=== PATIENT | female | born 1990 | race Two or more races ===

== ENCOUNTER 2024-04-12 17:34 | Emergency (ER) | payer SELFPAY ==
--- NOTE | ~2024-04-12 | CT_ITS ---
CT abdomen pelvis w con Ordering provider: Elier oPwers MD History: 33 years Female with . right lower quadrant pain . Comparison: None. Technique: CT abdomen and pelvis with IV and without oral contrast. Automated exposure control and it erative reconstruction technique were employed. The dose-length product was 203.68 mGy-cm. 100 mL Omn ipaque 350 was given Findings: VISUALIZED LOWER CHEST: Normal. UPPER ABDOMINAL ORGANS: Liver: Normal. Gallbladder: Status post cholecystectomy. Spleen: Normal. Stomach/duodenum: Normal. Pancreas: Normal. Adrenals: Normal. Kidneys: Normal. PELVIC ORGANS: The bladder is normal. BOWEL AND MESENTERY: Colon: No evidence of diverticulitis.. Fecal material is loaded in the colon. 8 mm Fluid containing structure is seen anterior to the bladder and medial to the cecum which may be the appendix or Small bowel. Clinical correlation for tenderness in this area is advised. Small Bowel: Normal. No obstruction. Peritoneum/mesentery: No free air. Trace of free fluid in the right side of the pelvis. No mesenteric lymphadenopathy. RETROPERITONEUM: Normal aorta. No retroperitoneal lymphadenopathy. MUSCULOSKELETAL: Superficial soft tissues: The superficial soft tissues are normal. Bones: Normal spine. Old fracture of the right transverse process of L3. 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 IMPRESSION: 1. No evidence of diverticulitis or intestinal obstruction. 2. Constipation 3. Fluid containing structure seen anterior to the bladder which may be the appendix or small bowel. Evaluation for tenderness in this area advised. Reviewed, dictated and finalized at location A. IMPRESSION: 1. No evidence of diverticulitis or intestinal obstruction. 2. Constipation 3. Fluid containing structure seen anterior to the bladder which may be the ap pendix or small bowel. Evaluation for tenderness in this area advised.
[2024-04-12 17:38] VITALS: BP 128/64; PULSE 73; RESP 15; TEMP 37.1; O2SAT 100
[2024-04-12 19:42] VITALS: BP 137/82; PULSE 68; RESP 16; TEMP 36.6; O2SAT 100
[2024-04-12 20:04] LABS: BEDSIDEPREGUCG Negative (Negative)
[2024-04-12 20:06] LABS: Basophils Percent Auto 0.6 % (0.2-1.2); Eosinophils Absolute Auto 0.1 K/mm3 (0-0.3); Eosinophils Percent Auto 1.6 % (0-4.4); Hematocrit 37.3 % (37.0-47.0); Hemoglobin 12.5 g/dL (12.0-15.0); Immature Granulocyte Absolute 0.01 K/mm3 (0.00-0.031); Immature Granulocyte Percent A 0.1 % (0-0.5); Lymphocytes Absolute Auto 3.23 K/mm3 (0.9-3.2); Mean Corpuscular HGB Conc 33.5 g/dl (32-36); Mean Corpuscular Hemoglobin 29.2 pg (26-34); Mean Corpuscular Volume 87.1 fl (80-100); Mean Platelet Volume 10.9 fl (7.4-10.4); Monocytes Absolute Auto 0.4 K/mm3 (0.1-0.6); Monocytes Percent Auto 6.4 % (2.6-8.5); Neutrophils Absolute Auto 2.9 K/mm3 (1.3-6.7); Neutrophils Percent Auto 43.3 % (45.5-73.1); Platelet Count Result 201 k/mm3 (150-375); Red Blood Count 4.28 M/mm3 (4.2-5.4); White Blood Count 6.7 K/mm3 (4.5-10.0)
[2024-04-12] MEDS: SODIUM CHLORIDE 0.9% IV 1,000 ML 999 ML IV CONT (20:10)
[2024-04-12] MEDS: ONDANSETRON INJ 4 MG/2 ML VIAL IV PUSH (20:10)
[2024-04-12 20:12] LABS: Add Urine Microscopic? YES; Appearance Urine Clear (Clear); Bacteria Urine None Seen /hpf; Bilirubin Urine Negative (Negative); Blood Urine Negative (Negative); Color Urine Yellow (Yellow); Glucose Urine UA Negative (Negative); Ketones Urine Negative (Negative); Leukocyte Esterase Ur Trace LEU/UL (Negative); Nitrate Urine Negative (Negative); Non Pathogenic Casts 0-2; Protein Urine Negative (Negative); RBC Urine 0-2 /hpf (0-2); Specific Grav Ur 1.007 (1.001-1.035); Squamous Epithelial Cell Urine None Seen /hpf (Few); Urobilinogen Urine 0.2 mg/dL (<2.0); WBC Urine 0-5 /hpf (0-3); pH Urine 6.5 (5.0-9.0)
[2024-04-12 20:16] LABS: Alanine Aminotransferase 18 U/L (6-35); Alkaline Phosphatase 94 U/L (38-126); Anion Gap 12 mmol/L (4-12); Aspartate Amino Transferase 30 U/L (14-36); Bilirubin,Total 0.6 mg/dL (0.2-1.3); Blood Urea Nitrogen 12 mg/dL (7-17); Calcium 9.3 mg/dL (8.4-10.2); Carbon Dioxide 22 mmol/L (22-30); Chloride 105 mmol/L (98-107); Estimated CRCL calculation 72 ml/min; Estimated Glomerular Filt Rate > 60; Glucose 88 mg/dL (65-110); Lipase 118 U/L (23-300); Potassium 3.6 mmol/L (3.4-5.0); Sodium 139 mmol/L (137-145)
--- NOTE | 2024-04-12 21:02 | ED.GENADULT ---
HPI - General Adult General Chief complaint: Abdominal Pain Stated complaint: abd pain Time Seen by Provider: 04/12/24 19:29 History of Present Illness HPI narrative: patient 33-year-old female who presents emergency department with chief complaint of abdominal pain patient reports been having pain for several days reports that it is worse in the right lower quadrant patient reports pain does not radiate reports no nausea vomiting diarrhea Related Data Allergies Allergy/AdvReac Type Severity Reaction Status Date / Time No Known Allergies Allergy Verified 04/12/24 17:41 Review of Systems Review of Systems: A 10 system review of systems was completed on the patient and is negative except for what is stated in the HPI. Nursing and ancillary documentation was reviewed. Exam Narrative: GENERAL: Well-appearing, well-nourished, and in no acute distress. HEAD: Normocephalic, atraumatic. EYES: PERRLA and EOMI. ENT: Nares clear, no rhinorrhea or epistaxis. Mucous membranes moist. NECK: Supple. CHEST: Clear to auscultation. No respiratory distress. HEART: Regular rate and rhythm. No murmur heard. Normal peripheral pulses. ABDOMEN: Soft, tenderness to palpation the right lower quadrant, nondistended, normal active bowel sounds. EXTREMITIES: Normal range of motion. No edema. SKIN: Warm, dry, no rash. NEURO: No focal deficits. Alert and oriented x3. PSYCH: Normal mood and affect. Course Vital Signs Vital signs: Vital Signs Temperature 37.1 C 04/12/24 17:38 Pulse Rate 73 04/12/24 17:38 Respiratory Rate 15 04/12/24 17:38 Blood Pressure 128/64 04/12/24 17:38 Pulse Oximetry 100 04/12/24 17:38 Oxygen Delivery Room Air 04/12/24 17:38 Temperature 36.6 C 04/12/24 19:42 Pulse Rate 68 04/12/24 19:42 Respiratory Rate 16 04/12/24 19:42 Blood Pressure 137/82 04/12/24 19:42 Pulse Oximetry 100 04/12/24 19:42 Oxygen Delivery Room Air 04/12/24 17:38 Medical Decision Making [facility] Narrative Medical decision making narrative: differential diagnosis includes UTI, intra-abdominal infection, diverticulitis, colitis, constipation, laboratory studies were obtained showed normal CBC normal CMP urinalysis showed no evidence UTI CT scan of the abdomen pelvis showed constipation there is no secondary evidence of appendicitis. The patient will be started on MiraLax and will be discharged home Vital Signs Vital Signs: Vital Signs Temperature 37.1 C 04/12/24 17:38 Pulse Rate 73 04/12/24 17:38 Respiratory Rate 15 04/12/24 17:38 Blood Pressure 128/64 04/12/24 17:38 Pulse Oximetry 100 04/12/24 17:38 Oxygen Delivery Room Air 04/12/24 17:38 Temperature 36.6 C 04/12/24 19:42 Pulse Rate 68 04/12/24 19:42 Respiratory Rate 16 04/12/24 19:42 Blood Pressure 137/82 04/12/24 19:42 Pulse Oximetry 100 04/12/24 19:42 Oxygen Delivery Room Air 04/12/24 17:38 Lab Data 04/12/24 19:59 04/12/24 19:59 Labs: Lab Results 04/12/24 04/12/24 Range/Units 19:59 20:02 WBC 6.7 (4.5-10.0) K/mm3 RBC 4.28 (4.2-5.4) M/mm3 Hgb 12.5 (12.0-15.0) g/dL Hct 37.3 (37.0-47.0) % MCV 87.1 (80-100) fl MCH 29.2 (26-34) pg MCHC 33.5 (32-36) g/dl RDW 13.0 (11.5-14.5) % Plt Count 201 (150-375) k/mm3 MPV 10.9 H (7.4-10.4) fl Immature Gran % (Auto) 0.1 (0-0.5) % Neut % (Auto) 43.3 L (45.5-73.1) % Lymph % (Auto) 48.0 H (18.3-44.2) % [place] % (Auto) 6.4 (2.6-8.5) % Eos % (Auto) 1.6 (0-4.4) % Baso % (Auto) 0.6 (0.2-1.2) % Lymph # (Auto) 3.23 H (0.9-3.2) K/mm3 [place] # (Auto) 0.4 (0.1-0.6) K/mm3 Eos # (Auto) 0.1 (0-0.3) K/mm3 Baso # (Auto) 0.0 (0.0-0.1) K/mm3 Abs Immat Gran (auto) 0.01 (0.00-0.031) K/mm3 Absolute Neuts (auto) 2.9 (1.3-6.7) K/mm3 Absolute Nucleated RBC 0.000 (0.0-0.012) K/mm3 Nucleated RBC % 0.0 (0.0-0.2) % Sodium 139 (137-145)
[2024-04-12 21:30] VITALS: BP 107/60; PULSE 69; RESP 17; TEMP 36.4; O2SAT 100
== END 2024-04-12 22:34 | disposition home or self-care (01) ==
PROVIDERS: Emergency Provider Emergency Medicine
DX: K59.00 Constipation, unspecified (principal)
CPT/HCPCS: 36415; 74177; 80053; 81001; 81025; 83690; 85025; 96361; 96374; 99284; J2405; J7030; Q9967

== ENCOUNTER 2024-10-18 18:42 | Emergency (ER) | payer SELFPAY ==
--- NOTE | ~2024-10-18 | CT_ITS ---
CT of the Abdomen and Pelvis: Indication: Abdominal pain Technique: 2.5 mm axial scans were obtained through the abdomen and pelvis following intravenous adm inistration of 100 cc of Omnipaque 350. Dose reduction technique was used on this scan by utilizing a utomated exposure control and iterative reconstruction technique. The dose-length product (DLP) was 1 91.17 mGy-cm. COMPARISON: 04/12/2024 Findings: Scans through the lung bases are unremarkable. The liver, spleen, pancreas, adrenals and kidneys are within normal limits. Cholecystectomy clips are present. No evidence of aortic aneurysm. No lymphadenopathy. No bowel obstruction or bowel wall thickening. There is no evidence to suggest acute appendicitis. Images through the pelvis were performed. Urinary bladder unremarkable. No pelvic mass seen. No ascit es. Impression: No significant abnormalities seen. Reviewed, dictated and finalized at [facility]. Impression: No significant abnormalities seen.
[2024-10-18 19:26] VITALS: BP 103/90; PULSE 69; RESP 17; TEMP 36.3; O2SAT 100
[2024-10-18 23:17] VITALS: BP 134/66; PULSE 61; RESP 15; O2SAT 100
[2024-10-18 23:23] LABS: BEDSIDEPREGUCG Negative (Negative)
[2024-10-18 23:27] LABS: Basophils Percent Auto 0.4 % (0.2-1.2); Eosinophils Percent Auto 0.4 % (0-4.4); Hematocrit 37.9 % (37.0-47.0); Hemoglobin 12.2 g/dL (12.0-15.0); Immature Granulocyte Absolute 0.01 K/mm3 (0.00-0.031); Immature Granulocyte Percent A 0.1 % (0-0.5); Lymphocytes Absolute Auto 3.28 K/mm3 (0.9-3.2); Lymphocytes Percent Auto 44.9 % (18.3-44.2); Mean Corpuscular HGB Conc 32.2 g/dl (32-36); Mean Corpuscular Volume 86.9 fl (80-100); Mean Platelet Volume 10.9 fl (7.4-10.4); Monocytes Absolute Auto 0.4 K/mm3 (0.1-0.6); Monocytes Percent Auto 5.9 % (2.6-8.5); Neutrophils Absolute Auto 3.5 K/mm3 (1.3-6.7); Neutrophils Percent Auto 48.3 % (45.5-73.1); Platelet Count Result 172 k/mm3 (150-375); Red Blood Count 4.36 M/mm3 (4.2-5.4); Red Cell Distribution Width 12.8 % (11.5-14.5); White Blood Count 7.3 K/mm3 (4.5-10.0)
[2024-10-18 23:28] LABS: Add Urine Microscopic? NO; Appearance Urine Clear (Clear); Bilirubin Urine Negative (Negative); Blood Urine Negative (Negative); Color Urine Yellow (Yellow); Glucose Urine UA Negative (Negative); Ketones Urine Negative (Negative); Leukocyte Esterase Ur Negative LEU/UL (Negative); Nitrate Urine Negative (Negative); Protein Urine Negative (Negative); Specific Grav Ur 1.006 (1.001-1.035); Urobilinogen Urine 0.2 mg/dL (<2.0); pH Urine 5.5 (5.0-9.0)
[2024-10-18 23:37] LABS: Alanine Aminotransferase 23 U/L (6-35); Albumin Level 4.8 g/dL (3.5-5.1); Alkaline Phosphatase 93 U/L (38-126); Anion Gap 13 mmol/L (4-12); Aspartate Amino Transferase 23 U/L (14-36); Bilirubin,Total 0.6 mg/dL (0.2-1.3); Blood Urea Nitrogen 9 mg/dL (7-17); Calcium 9.4 mg/dL (8.4-10.2); Carbon Dioxide 22 mmol/L (22-30); Chloride 104 mmol/L (98-107); Estimated CRCL calculation 70 ml/min; Estimated Glomerular Filt Rate > 60; Glucose 96 mg/dL (65-110); Lipase 89 U/L (23-300); Potassium 3.4 mmol/L (3.4-5.0); Sodium 139 mmol/L (137-145)
[2024-10-19 00:04] LABS: Influenza A QL RT-PCR Negative (Negative); Influenza B QL RT-PCR Negative (Negative); RSV RNA, RT-PCR Negative (Negative); SARS-CoV-2 RNA PCR Negative (Negative)
[2024-10-19] MEDS: MORPHINE SULFATE (*CRX) 2 MG/ML INJ IV PUSH (00:35)
[2024-10-19] MEDS: SODIUM CHLORIDE 0.9% IV 1,000 ML 999 ML IV CONT (00:35)
[2024-10-19 00:48] VITALS: BP 124/80; PULSE 58; RESP 15; O2SAT 100
--- NOTE | 2024-10-19 00:57 | ED.ABDPAIN ---
HPI - Abdominal Pain General Chief Complaint: Abdominal Pain Stated Complaint: Abdominal pain, diarrhea, fever Time Seen by Provider: 10/18/24 23:14 History of Present Illness HPI narrative: Patient is a 34-year-old female who presents to the ER with abdominal pain that started approximately 4-5 days ago. She reports she has had diarrhea and vomiting. Patient also endorses a slight headache. She endorses a history cholecystectomy, skin infection, 2 pregnancies, heavy vaginal bleeding during her menstrual periods. Patient denies any chest pain, shortness of breath, back pain, vaginal bleeding. She does endorses intermittent low grade fevers. Related Data Allergies Allergy/AdvReac Type Severity Reaction Status Date / Time No Known Allergies Allergy Verified 10/18/24 18:43 Review of Systems Review of Systems: All systems reviewed & are unremarkable except as noted in HPI and below Exam Narrative: GENERAL: Well appearing, well-nourished, non-toxic, in no acute distress. HEAD: Normocephalic, atraumatic. NECK: Supple. No adenopathy, no masses. RESPIRATORY: Airway patent, respirations nonlabored. Clear to auscultation bilaterally, no rales, rhonchi, wheezing. CARDIOVASCULAR: Regular rate and rhythm without murmurs, rubs, or gallops. Peripheral pulses 2+ and equal bilaterally. ABDOMINAL: Soft, tender upon umbilicus and RLQ abdominal pain, nondistended, no hepatosplenomegaly. Normoactive BS. MUSCULOSKELETAL: Moves all extremities. Strength/ROM intact without gross deformities. SKIN: Warm, dry, normal color. No rashes. NEURO: A&O X3. Speech clear. Cranial nerves II-XII intact. No ataxic movements. PSYCHIATRIC: Appropriate mood and affect. Normal interaction. Course Vital Signs Vital signs: Vital Signs Temperature 36.3 C L 10/18/24 19: Pulse Rate 69 10/18/24 19: Respiratory Rate 17 10/18/24 19: Blood Pressure 103/90 10/18/24 19: Pulse Oximetry 100 10/18/24 19:26 Oxygen Delivery Room Air 10/18/24 19: Temperature 36.3 C L 10/18/24 19: Pulse Rate 62 10/19/24 03:46 Respiratory Rate 15 10/19/24 03:46 Blood Pressure 106/52 L 10/19/24 03:46 Pulse Oximetry 100 10/19/24 03:46 Oxygen Delivery Room Air 10/18/24 19:26 MDM - Abdominal Pain MDM Narrative Medical decision making narrative: Patient is a 34-year-old female who presents to the ER with abdominal pain that started approximately 4-5 days ago. She reports she has had diarrhea and vomiting. Patient also endorses a slight headache. She endorses a history cholecystectomy, skin infection, 2 pregnancies, heavy vaginal bleeding during her menstrual periods. Patient denies any chest pain, shortness of breath, back pain, vaginal bleeding, recent fevers. Labs Ordered: CBC, CMP, UA, lipase, COVID/flu/RSV swab, bedside urine Imaging Ordered: CT abdomen pelvis scan Medications Ordered: 1 L normal saline IV bolus, morphine 2 mg IV Results: Pt's CT abdomen pelvis indicates a 1.2cm hemorrhagic left ovarian cyst, mild pelvic free fluid, no bowel obstruction, normal appendix, no other acute findings. Diagnosis: gastroenteritis, ovarian cyst Patient Education/Shared MDM: Results shared with patient. She endorses improvement following medication administration. Patient strongly advised to maintain hydration status upon discharge and follow-up with her PCP as soon as possible. She will be discharged home with a prescription for Zofran and Bentyl. Strict return precautions provided. Patient verbalized understanding and is in agreement with plan. Vital signs stable at time of discharge. All questions answered. Differential Diagnosis Differential diagnosis: Likely abdominal pain, acute appendicitis, constipation, diverticulitis, gastroenteritis and small bowel obstruction Lab Data Attestation: I reviewed the patient's lab results. 10/18/24 23:13 10/18/24 23:13 Labs: Lab Results 10/18/24 10/18/24 10/18/24 Range/Units 23:13 23:18 23:20 WBC 7.3 (4.5-10.0) K/mm3 RBC 4.36 (4.2-5.4) M/mm3 Hgb 12.2 (12.0-15.0) g/dL Hct 37.9 (37.0-47.0) % MCV 86.9 (80-100) fl MCH 28.0 (26-34) pg MCHC 32.2 (32-36) g/dl RDW 12.8 (11.5-14.5) % Plt Count 172 (150-375) k/mm3 MPV 10.9 H (7.4-10.4) fl Immature Gran % (Auto) 0.1 (0-0.5) % Neut % (Auto) 48.3 (45.5-73.1) % Lymph % (Auto) 44.9 H (18.3-44.2) % [place] % (Auto) 5.9 (2.6-8.5) % Eos % (Auto) 0.4 (0-4.4) % Baso % (Auto) 0.4 (0.2-1.2) % Lymph # (Auto) 3.28 H (0.9-3.2) K/mm3 [place] # (Auto) 0.4 (0.1-0.6) K/mm3 Eos # (Auto) 0.0 (0-0.3) K/mm3 Baso # (Auto) 0.0 (0.0-0.1) K/mm3 Abs Immat Gran (auto) 0.01 (0.00-0.031) K/mm3 Absolute Neuts (auto) 3.5 (1.3-6.7) K/mm3 Absolute Nucleated RBC 0.000 (0.0-0.012) K/mm3 Nucleated RBC % 0.0 (0.0-0.2) % Sodium 139 (137-145) mmol/L Potassium 3.4 (3.4-5.0) mmol/L Chloride 104 (98-107) mmol/L Carbon Dioxide 22 (22-30) mmol/L Anion Gap 13 H (4-12) mmol/L BUN 9 (7-17) mg/dL Creatinine 0.70 (0.7-1.0) mg/dL Estim Creat Clear Calc 70 ml/min Estimated GFR > 60 (59 - ) Glucose 96 (65-110) mg/dL Calcium 9.4 (8.4-10.2) mg/dL Total Bilirubin 0.6 (0.2-1.3) mg/dL AST 23 (14-36) U/L ALT 23 (6-35) U/L Alkaline Phosphatase 93 (38-126) U/L Total Protein 8.0 (6.3-8.2) g/dL Albumin 4.8 (3.5-5.1) g/dL Lipase 89 (23-300) U/L Urine Color Yellow (Yellow) Urine Appearance Clear (Clear) Urine pH 5.5 (5.0-9.0) Ur Specific [place] 1.006 (1.001-1.035) Urine Protein Negative (Negative) mg/dL Urine Glucose (UA) Negative (Negative) mg/dL Urine Ketones Negative (Negative) mg/dL Ur Blood (Man) Negative (Negative) Urine Nitrate Negative (Negative) Urine Bilirubin Negative (Negative) Urine Urobilinogen 0.2 (<2.0) mg/dL Leukocyte Esterase Rfl Negative (Negative) YUNG/UL POC Urine HCG, Qual Negative (Negative) Influenza A (RT-PCR) Negative (Negative) Influenza B (RT-PCR) Negative (Negative) RSV (RT-PCR) Negative (Negative) SARS-CoV-2 RNA (RT-PCR) Negative (Negative) Imaging Data My impression: Pt's CT abdomen pelvis indicates a 1.2cm hemorrhagic left ovarian cyst, mild pelvic free fluid, no bowel obstruction, normal appendix, no other acute findings. Discharge Plan Discharge Clinical Impression: Abdominal pain, Gastroenteritis, Hemorrhagic cyst of left ovary Patient Disposition: Home, Self-Care Condition: Stable Instructions: Antibiotic Form, Abdominal Pain (ED) Additional Instructions: Please return to the ER with any worsening symptoms. Follow-up with primary care provider as soon as possible and follow-up with your OBGYN. Take all medications as prescribed, including regularly scheduled medications. Patient Language: Icelandic Prescriptions: New dicyclomine 10 mg capsule 10 mg PO TID Qty: 20 0RF ondansetron 4 mg tablet,disintegrating 4 mg PO Q8H Qty: 15 0RF No Action polyethylene glycol 3350 [Miralax] 17 gram/dose powder 17 g PO DAILY 5 Days Qty: 85 0RF Follow-up/Referrals: PHYSICIAN,[facility] [Primary Care Provider] - Time of Disposition: 04:00
[2024-10-19 03:46] VITALS: BP 106/52; PULSE 62; RESP 15; O2SAT 100
[2024-10-19 04:15] VITALS: BP 112/58; PULSE 64; RESP 17; O2SAT 99
== END 2024-10-19 04:16 | disposition home or self-care (01) ==
PROVIDERS: Emergency Medicine; Emergency Provider Registered Nurse
DX: K52.9 Noninfective gastroenteritis and colitis, unspecified (principal); N83.202 Unspecified ovarian cyst, left side; Z20.822 Contact with and (suspected) exposure to COVID-19
CPT/HCPCS: 36415; 74177; 80053; 81003; 81025; 83690; 85025; 87637; 96361; 96374; 99284; J2270; J7030; Q9967

== ENCOUNTER 2024-11-13 16:20 | Emergency (ER) | payer SELFPAY ==
--- NOTE | ~2024-11-13 | CT_ITS ---
CLINICAL INDICATION: Abdominal pain COMPARISON: 10/19/2024. TECHNIQUE: Multiple contiguous axial images of the abdomen and pelvis were performed following the ad ministration of with 100 mL Omnipaque-350 intravenous contrast The dose-length product (DLP) was 175.26 mGy-cm. Automated exposure control and iterative reconstruction technique were employed. FINDINGS/OBSERVATIONS: Visualized lower thorax: The bilateral lung bases are clear. The heart is of normal size, without pericardial effusion. Small hiatal hernia is present. Liver: The liver demonstrates homogeneous enhancement and is not enlarged. Gallbladder and biliary system: The gallbladder is surgically absent. Pancreas: The pancreas enhances homogeneously without ductal dilatation. Spleen: The spleen enhances homogeneously and is not enlarged. Kidneys: The bilateral kidneys enhance symmetrically without hydronephrosis or renal calculi. Adrenal glands: Unremarkable. Gastrointestinal tract: Fecal stasis within the colon. Appendix: The appendix is not definitively visualized. However, no pericecal inflammatory change is identified suggest the presence of acute appendicitis. 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 Lymph nodes: No pathologically enlarged or morphologically suspicious lymph nodes within the retroperitoneum or at the root of the mesentery. Pelvic structures: The bladder is distended, and otherwise unremarkable. Uterus is anteverted and retroflexed. Involuting cyst within the left ovary which does not meet size criteria for follow-up (measuring only 16 mm) and unchanged from 10/19/2024. Free fluid within the pelvis, likely physiologic. Body wall and musculoskeletal: No significant degenerative disease within the lower thoracic or lumbosacral spine. 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 Referral to [facility] is recommended, with subsequent treatment by interventional radiology. Involuting cyst within the left ovary. Thank you for the opportunity to assist in the care of your patient. For questions or concerns regarding this interpretation, please reach out to me directly at [phone]. Reviewed, dictated and finalized at location A. 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 Referral to [facility] is recommended, with subsequent treatment by interventional rad iology. Involuting cyst within the left ovary. Thank you for the opportunity to assist in the care of your patient. For questions or concerns regarding this interpretation, please reach out to me directly at [phone].
[2024-11-13 16:40] VITALS: BP 128/63; PULSE 66; RESP 16; TEMP 36.5; O2SAT 100
--- NOTE | 2024-11-13 16:45 | ED.ABDPAIN ---
HPI - Abdominal Pain General Chief Complaint: Abdominal Pain <Amber Reyes PA-C - Last Filed: 11/13/24 16:47> Stated Complaint: abd pain, diarrhea <Amber Reyes PA-C - Last Filed: 11/13/24 16:47> Time Seen by Provider: 11/13/24 17:10 <Amber Reyes PA-C - Last Filed: 11/13/24 16:47> Focused HPI: 34 y/o F with a PMHx of cholecystectomy presents to the ED for lower abdominal pain and diarrhea x15 days. Pt endorsing dysuria. No n/v. States she has been having fevers around 102. She has not taken any medications for her symptoms or fever. Denies vaginal discharge or concern for STDs. GENERAL: Well-appearing, well-nourished, and in no acute distress. HEAD: Normocephalic, atraumatic. CHEST: Clear to auscultation. ?No respiratory distress. HEART: Regular rate and rhythm.? NEURO: ?Alert and oriented x3. Patient screened in triage and initial orders placed.? ?Additional care and disposition to be based upon?diagnostic testing and treatment. <Amber Reyes PA-C - Last Filed: 11/13/24 16:47> History of Present Illness HPI narrative: per HPI; agree. Pelvic pain for weeks to months and some diarrhea and cramping worse after eating. Already saw OBGYN without answers. <Ora Scott MD - Last Filed: 11/13/24 19:11> Related Data Allergies/Adverse Reactions: Allergies Allergy/AdvReac Type Severity Reaction Status Date / Time No Known Allergies Allergy Verified 11/13/24 16:21 <Amber Reyes PA-C - Last Filed: 11/13/24 16:47> Exam Narrative: EXAMINATION OF ORGAN SYSTEMS/BODY AREAS: Constitutional: Vital signs per nursing GENERAL:[No acute distress, non-toxic appearing.] HEAD: Normal with no signs of head trauma. EYES: EOMI, conjunctiva normal ENT: Hearing grossly intact LUNGS: Nonlabored breathing. HEART: [Regular rate and rhythm] ABD: [Soft], [nontender to palpation] EXT: Normal range of motion SKIN: [No rashes or lesions.] NEURO: [Alert and oriented x 3. No gross focal sensory or strength deficits.] PSYCH: Normal affect <Ora Scott MD - Last Filed: 11/13/24 19:11> Course Vital Signs Vital signs: Vital Signs Temperature 97.7 F 11/13/24 16:40 Pulse Rate 66 11/13/24 16:40 Respiratory Rate 16 11/13/24 16:40 Blood Pressure 128/63 11/13/24 16:40 Pulse Oximetry 100 11/13/24 16:40 Temperature 97.7 F 11/13/24 16:40 Pulse Rate 66 11/13/24 16:40 Respiratory Rate 16 11/13/24 16:40 Blood Pressure 128/63 11/13/24 16:40 Pulse Oximetry 100 11/13/24 16:40 <Amber Reyes PA-C - Last Filed: 11/13/24 16:47> Vital Signs Temperature 97.7 F 11/13/24 16:40 Pulse Rate 66 11/13/24 16:40 Respiratory Rate 16 11/13/24 16:40 Blood Pressure 128/63 11/13/24 16:40 Pulse Oximetry 100 11/13/24 16:40 Temperature 97.7 F 11/13/24 16:40 Pulse Rate 66 11/13/24 16:40 Respiratory Rate 16 11/13/24 16:40 Blood Pressure 128/63 11/13/24 16:40 Pulse Oximetry 100 11/13/24 16:40 <Ora Scott MD - Last Filed: 11/13/24 19:11> MDM - Abdominal Pain MDM Narrative Medical decision making narrative: 1) Differential diagnosis: diverticulitis, gastroenteritis, endometriosis, etc 2) Comorbidities: n/a 3) External notes reviewed: prior notes 4) History sources independently obtained from: at bedside 5) Discussion of management with: OBGYN 6) Independent interpretation of: 7) Diagnostic tests or therapies considered but not ordered: 8) Social determinants of health: 9) Shared decision makinF p/w diarrhea and pelvic pain x weeks to months; labs wnl, CT A/P obtained showing likely pelvic congestion syndrome. D/w OBGYN for outpt mgmt/f/u. D/w pt plan for f/u. Also referral to GI for her chronic GI sx, also advised trying to cut dairy out of her diet. Return precautions provided. <Ora Scott MD - Last Filed: 11/13/24 19:11> Lab Data Result diagrams: 11/13/24 16:56 11/13/24 16:56 <Amber Reyes PA-C - Last Filed: 11/13/24 16:47> Labs: Lab Results 11/13/24 11/13/24 11/13/24 Range/Units 16:56 17:04 17:10 WBC 5.9 (4.5-10.0) K/mm3 RBC 4.37 (4.2-5.4) M/mm3 Hgb 12.1 (12.0-15.0) g/dL Hct 38.7 (37.0-47.0) % MCV 88.6 (80-100) fl MCH 27.7 (26-34) pg MCHC 31.3 L (32-36) g/dl RDW 12.7 (11.5-14.5) % Plt Count 178 (150-375) k/mm3 MPV 11.0 H (7.4-10.4) fl Immature Gran % (Auto) 0.2 (0-0.5) % Neut % (Auto) 49.3 (45.5-73.1) % Lymph % (Auto) 41.5 (18.3-44.2) % [place] % (Auto) 8.6 H (2.6-8.5) % Eos % (Auto) 0.2 (0-4.4) % Baso % (Auto) 0.2 (0.2-1.2) % Lymph # (Auto) 2.45 (0.9-3.2) K/mm3 [place] # (Auto) 0.5 (0.1-0.6) K/mm3 Eos # (Auto) 0.0 (0-0.3) K/mm3 Baso # (Auto) 0.0 (0.0-0.1) K/mm3 Abs Immat Gran (auto) 0.01 (0.00-0.031) K/mm3 Absolute Neuts (auto) 2.9 (1.3-6.7) K/mm3 Absolute Nucleated RBC 0.000 (0.0-0.012) K/mm3 Nucleated RBC % 0.0 (0.0-0.2) % Sodium 140 (137-145) mmol/L Potassium 3.7 (3.4-5.0) mmol/L Chloride 107 (98-107) mmol/L Carbon Dioxide 22 (22-30) mmol/L Anion Gap 11 (4-12) mmol/L BUN 13 (7-17) mg/dL Creatinine 0.62 L (0.7-1.0) mg/dL Estim Creat Clear Calc 84 ml/min Estimated GFR > 60 (59 - ) Glucose 95 (65-110) mg/dL Calcium 9.1 (8.4-10.2) mg/dL Total Bilirubin 0.3 (0.2-1.3) mg/dL AST 21 (14-36) U/L ALT 21 (6-35) U/L Alkaline Phosphatase 79 (38-126) U/L Total Protein 8.0 (6.3-8.2) g/dL Albumin 4.8 (3.5-5.1) g/dL Lipase 112 (23-300) U/L Urine Color Yellow (Yellow) Urine Appearance Clear (Clear) Urine pH 7.0 (5.0-9.0) Ur Specific [place] 1.006 (1.001-1.035) Urine Protein Negative (Negative) mg/dL Urine Glucose (UA) Negative (Negative) mg/dL Urine Ketones Negative (Negative) mg/dL Ur Blood (Man) Negative (Negative) Urine Nitrate Negative (Negative) Urine Bilirubin Negative (Negative) Urine Urobilinogen 0.2 (<2.0) mg/dL Leukocyte Esterase Rfl Trace H (Negative) YUNG/UL Urine RBC 0-2 (0-2) /hpf Urine WBC 0-5 (0-3) /hpf Ur Squamous Epith Cells None seen (Few) /hpf Urine Bacteria None seen /hpf Urine Casts 0-2 POC Urine HCG, Qual Negative (Negative) <Amber Reyes PA-C - Last Filed: 11/13/24 16:47> Lab Results 11/13/24 11/13/24 11/13/24 Range/Units 16:56 17:04 17:10 WBC 5.9 (4.5-10.0) K/mm3 RBC 4.37 (4.2-5.4) M/mm3 Hgb 12.1 (12.0-15.0) g/dL Hct 38.7 (37.0-47.0) % MCV 88.6 (80-100) fl MCH 27.7 (26-34) pg MCHC 31.3 L (32-36) g/dl RDW 12.7 (11.5-14.5) % Plt Count 178 (150-375) k/mm3 MPV 11.0 H (7.4-10.4) fl Immature Gran % (Auto) 0.2 (0-0.5) % Neut % (Auto) 49.3 (45.5-73.1) % Lymph % (Auto) 41.5 (18.3-44.2) % [place] % (Auto) 8.6 H (2.6-8.5) % Eos % (Auto) 0.2 (0-4.4) % Baso % (Auto) 0.2 (0.2-1.2) % Lymph # (Auto) 2.45 (0.9-3.2) K/mm3 [place] # (Auto) 0.5 (0.1-0.6) K/mm3 Eos # (Auto) 0.0 (0-0.3) K/mm3 Baso # (Auto) 0.0 (0.0-0.1) K/mm3 Abs Immat Gran (auto) 0.01 (0.00-0.031) K/mm3 Absolute Neuts (auto) 2.9 (1.3-6.7) K/mm3 Absolute Nucleated RBC 0.000 (0.0-0.012) K/mm3 Nucleated RBC % 0.0 (0.0-0.2) % Sodium 140 (137-145) mmol/L Potassium 3.7 (3.4-5.0) mmol/L Chloride 107 (98-107) mmol/L Carbon Dioxide 22 (22-30) mmol/L Anion Gap 11 (4-12) mmol/L BUN 13 (7-17) mg/dL Creatinine 0.62 L (0.7-1.0) mg/dL Estim Creat Clear Calc 84 ml/min Estimated GFR > 60 (59 - ) Glucose 95 (65-110) mg/dL Calcium 9.1 (8.4-10.2) mg/dL Total Bilirubin 0.3 (0.2-1.3) mg/dL AST 21 (14-36) U/L ALT 21 (6-35) U/L Alkaline Phosphatase 79 (38-126) U/L Total Protein 8.0 (6.3-8.2) g/dL Albumin 4.8 (3.5-5.1) g/dL Lipase 112 (23-300) U/L Urine Color Yellow (Yellow) Urine Appearance Clear (Clear) Urine pH 7.0 (5.0-9.0) Ur Specific [place] 1.006 (1.001-1.035) Urine Protein Negative (Negative) mg/dL Urine Glucose (UA) Negative (Negative) mg/dL Urine Ketones Negative (Negative) mg/dL Ur Blood (Man) Negative (Negative) Urine Nitrate Negative (Negative) Urine Bilirubin Negative (Negative) Urine Urobilinogen 0.2 (<2.0) mg/dL Leukocyte Esterase Rfl Trace H (Negative) YUNG/UL Urine RBC 0-2 (0-2) /hpf Urine WBC 0-5 (0-3) /hpf Ur Squamous Epith Cells None seen (Few) /hpf Urine Bacteria None seen /hpf Urine Casts 0-2 POC Urine HCG, Qual Negative (Negative) <Ora Scott MD - Last Filed: 11/13/24 19:11> Imaging Data Radiologist's impression: ITS Impressions Abdomen/Pelvis CT 11/13/24 17:48 IMPRESSION: 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 Referral to [facility] is recommended, with subsequent treatment by interventional radiology. Involuting cyst within the left ovary. Thank you for the opportunity to assist in the care of your patient. For questions or concerns regarding this interpretation, please reach out to me directly at [phone]. 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 Referral to [facility] is recommended, with subsequent treatment by interventional radiology. Involuting cyst within the left ovary. Thank you for the opportunity to assist in the care of your patient. For questions or concerns regarding this interpretation, please reach out to me directly at [phone]. <Ora Scott MD - Last Filed: 11/13/24 19:11> Discharge Plan Discharge Clinical Impression: Pelvic congestion syndrome <Amber Reyes PA-C - Last Filed: 11/13/24 16:47> Patient Disposition: Home <Amber Reyes PA-C - Last Filed: 11/13/24 16:47> Condition: Stable <Amber Reyes PA-C - Last Filed: 11/13/24 16:47> Instructions: Chronic Diarrhea (ED), Pelvic Pain in Women (ED) <Amber Reyes PA-C - Last Filed: 11/13/24 16:47> Additional Instructions: Please follow up with your OBGYN ( I did call the office and discussed your case and CT findings with the doctor), and the GI doctor. If you are still having diarrhea, considering cutting dairy out of your diet, and stop taking the miralax. You can always return to the ER for any further issues. <Amber Reyes PA-C - Last Filed: 11/13/24 16:47> Patient Language: Irish <Amber Reyes PA-C - Last Filed: 11/13/24 16:47> Prescriptions: New naproxen 250 mg tablet 250 mg PO BID PRN (Reason: pain) Qty: 30 0RF famotidine 20 mg tablet 20 mg PO DAILY Qty: 30 0RF No Action polyethylene glycol 3350 [Miralax] 17 gram/dose powder 17 g PO DAILY 5 Days Qty: 85 0RF dicyclomine 10 mg capsule 10 mg PO TID Qty: 20 0RF ondansetron 4 mg tablet,disintegrating 4 mg PO Q8H Qty: 15 0RF <Amber Reyes PA-C - Last Filed: 11/13/24 16:47> Follow-up/Referrals: Johnathon Waterman MD [Physician] - 2 Days PHYSICIAN,[facility] [Non-Staff] - Mac Coombs MD [Physician] - 2 Days <Amber Reyes PA-C - Last Filed: 11/13/24 16:47>
[2024-11-13 17:04] LABS: Basophils Percent Auto 0.2 % (0.2-1.2); Eosinophils Percent Auto 0.2 % (0-4.4); Hematocrit 38.7 % (37.0-47.0); Hemoglobin 12.1 g/dL (12.0-15.0); Immature Granulocyte Absolute 0.01 K/mm3 (0.00-0.031); Immature Granulocyte Percent A 0.2 % (0-0.5); Lymphocytes Absolute Auto 2.45 K/mm3 (0.9-3.2); Lymphocytes Percent Auto 41.5 % (18.3-44.2); Mean Corpuscular HGB Conc 31.3 g/dl (32-36); Mean Corpuscular Hemoglobin 27.7 pg (26-34); Mean Corpuscular Volume 88.6 fl (80-100); Monocytes Absolute Auto 0.5 K/mm3 (0.1-0.6); Monocytes Percent Auto 8.6 % (2.6-8.5); Neutrophils Absolute Auto 2.9 K/mm3 (1.3-6.7); Neutrophils Percent Auto 49.3 % (45.5-73.1); Platelet Count Result 178 k/mm3 (150-375); Red Blood Count 4.37 M/mm3 (4.2-5.4); Red Cell Distribution Width 12.7 % (11.5-14.5); White Blood Count 5.9 K/mm3 (4.5-10.0)
[2024-11-13 17:12] LABS: BEDSIDEPREGUCG Negative (Negative)
[2024-11-13 17:14] LABS: Alanine Aminotransferase 21 U/L (6-35); Albumin Level 4.8 g/dL (3.5-5.1); Alkaline Phosphatase 79 U/L (38-126); Anion Gap 11 mmol/L (4-12); Aspartate Amino Transferase 21 U/L (14-36); Bilirubin,Total 0.3 mg/dL (0.2-1.3); Blood Urea Nitrogen 13 mg/dL (7-17); Calcium 9.1 mg/dL (8.4-10.2); Carbon Dioxide 22 mmol/L (22-30); Chloride 107 mmol/L (98-107); Estimated CRCL calculation 84 ml/min; Estimated Glomerular Filt Rate > 60; Glucose 95 mg/dL (65-110); Lipase 112 U/L (23-300); Potassium 3.7 mmol/L (3.4-5.0); Sodium 140 mmol/L (137-145)
[2024-11-13 17:14] LABS: Add Urine Microscopic? YES; Appearance Urine Clear (Clear); Bacteria Urine None Seen /hpf; Bilirubin Urine Negative (Negative); Blood Urine Negative (Negative); Color Urine Yellow (Yellow); Glucose Urine UA Negative (Negative); Ketones Urine Negative (Negative); Leukocyte Esterase Ur Trace LEU/UL (Negative); Nitrate Urine Negative (Negative); Non Pathogenic Casts 0-2; Protein Urine Negative (Negative); RBC Urine 0-2 /hpf (0-2); Specific Grav Ur 1.006 (1.001-1.035); Squamous Epithelial Cell Urine None Seen /hpf (Few); Urobilinogen Urine 0.2 mg/dL (<2.0); WBC Urine 0-5 /hpf (0-3)
[2024-11-13 19:13] VITALS: BP 115/64; PULSE 98; RESP 20; O2SAT 99
== END 2024-11-13 19:15 | disposition home or self-care (01) ==
PROVIDERS: Physician Assistant; Emergency Provider Emergency Medicine
DX: N94.89 Other specified conditions associated with female genital organs and menstrual cycle (principal)
CPT/HCPCS: 36415; 74177; 80053; 81001; 81025; 83690; 85025; 99284; Q9967